=== PATIENT | female | born 1975 | race Hispanic/Latino ===

== ENCOUNTER 2020-11-20 23:24 | Emergency (ER) | payer BC ==
[2020-11-21] MEDS ORDERED: diphenhydrAMINE 50 MG/ML VIAL IV ONE (07:35)
[2020-11-21] MEDS ORDERED: METOCLOPRAMIDE 10 MG/2 ML INJ IV ONE (07:35)
[2020-11-21] MEDS ORDERED: ACETAMINOPHEN 500 MG TAB PO ONE (07:35)
[2020-11-21] MEDS ORDERED: LACTATED RINGERS 1,000 ML IV ONE (07:35)
--- NOTE | 2020-11-21 07:37 | Emergency Department Report ---
ED General Adult HPI - General Chief complaint: Seizure Stated complaint: SEIZURES PUI?: No Time Seen by Provider: 11/21/20 06:08 Source: patient, RN notes reviewed Mode of arrival: Ambulatory Limitations: No Limitations - History of Present Illness Initial comments: This patient is a pleasant and cooperative 45-year-old female. She is not known to myself, and is currently visiting from [place]. She reports a history of petit seizures. She has not had a convulsive event or petit seizure for about 3 years. Patient reports being at work yesterday, feeling like she was in her usual state of health, except for feeling "really stressed out", when she feels like she may have had a seizure event. Her events are nonconvulsive, and she reports that she "blanks out", and has some amnesia. Prior to the event, the patient denies all physical complaints. After the event, the patient complains of throbbing headache which is typical for her episodes. She denies sudden and thunderclap headache. She denies vomiting, diaphoresis, chest pain, abdominal pain, shortness of breath, urinary symptoms, and recreational drug use. She previously was on Depakote, but has not taken any medication for the past 3 years. In [place], she has been followed by a primary care doctor but not a neurologist for the past 3 years. Besides her mild headache, she feels like she is back to her baseline. She denies Covid symptomatology. At the moment, denies loss of vision, chest pain, abdominal pain, shortness of breath, urinary symptoms, extremity weakness/numbness -: Last night Location: head Severity scale (0 -10): 0 Quality: aching Consistency: intermittent Improves with: none Worsens with: none Associated Symptoms: denies other symptoms - Related Data Previous Rx's Medication Instructions Recorded Last Taken Type Aspirin 325 mg PO ONCE #30 tablet 11/21/20 Unknown Rx levETIRAcetam [Keppra TAB] 500 mg PO BID #60 tablet 11/21/20 Unknown Rx Allergies Allergy/AdvReac Type Severity Reaction Status Date / Time morphine Allergy Anaphylaxis Verified 11/21/20 00:21 ED Review of Systems ROS: Stated complaint: SEIZURES Other details as noted in HPI Comment: All other systems reviewed and negative Neurological: headache ED Past Medical Hx - Past Medical History Previous Medical History?: Yes Additional medical history: Seizures - Surgical History Past Surgical History?: Yes Hx Cholecystectomy: Yes Hx Appendectomy: Yes Additional Surgical History: Hysterectomy - Medications Home Medications: Home Medications Medication Instructions Recorded Confirmed Last Taken Type Aspirin 325 mg PO ONCE #30 tablet 11/21/20 Unknown Rx levETIRAcetam [Keppra TAB] 500 mg PO BID #60 tablet 11/21/20 Unknown Rx ED Physical Exam - General Limitations: No Limitations General appearance: alert, in no apparent distress - Head Head exam: Present: atraumatic, normocephalic - Eye Eye exam: Present: normal appearance, PERRL, EOMI. Absent: nystagmus - ENT ENT exam: Present: normal exam, normal orophraynx, mucous membranes moist, normal external ear exam - Neck Neck exam: Present: normal inspection, full ROM. Absent: tenderness, meningismus - Respiratory Respiratory exam: Present: normal lung sounds bilaterally. Absent: respiratory distress, wheezes, rales, rhonchi, stridor, decreased breath sounds - Cardiovascular Cardiovascular Exam: Present: regular rate, normal rhythm, normal heart sounds. Absent: bradycardia, tachycardia, irregular rhythm, systolic murmur, diastolic murmur, rubs, gallop - GI/Abdominal GI/Abdominal exam: Present: soft. Absent: distended, tenderness, guarding, rebound, rigid, pulsatile mass - Extremities Exam Extremities exam: Present: normal inspection, full ROM, other (2+ pulses noted in the bilateral upper and lower extremities. There is no palpable cord. negative Homans sign. Muscular compartments are soft. The pelvis is stable.). Absent: pedal edema, calf tenderness - Back Exam Back exam: Present: normal inspection, full ROM. Absent: tenderness, CVA tenderness (R), CVA tenderness (L), paraspinal tenderness, vertebral tenderness - Neurological Exam Neurological exam: Present: alert (There is no past-pointing. There is no pronator drift. [id number] within normal limits.), oriented X3, normal gait, other (No facial droop. Tongue midline. Extraocular movements intact bilaterally. Facial sensation intact to light touch in V1, V2, V3 distribution bilaterally. 5 and a 5 strength in 4 extremities. Sensation intact to light touch in 4 extremities.). Absent: motor sensory deficit - Psychiatric Psychiatric exam: Present: normal affect, normal mood - Skin Skin exam: Present: warm, dry, intact, normal color. Absent: rash ED Course Vital Signs 11/21/20 11/21/20 11/21/20 00:18 06:05 06:06 Temperature 98.1 F 98.2 F Pulse Rate 60 66 Respiratory 16 16 Rate Blood Pressure 144/81 Blood Pressure 150/83 [Right] O2 Sat by Pulse 100 99 100 Oximetry 11/21/20 11/21/20 11/21/20 06:15 06:30 06:46 Temperature Pulse Rate Respiratory Rate Blood Pressure 150/83 150/83 150/83 Blood Pressure [Right] O2 Sat by Pulse 99 99 97 Oximetry 11/21/20 11/21/20 11/21/20 07:00 07:16 07:32 Temperature Pulse Rate Respiratory Rate Blood Pressure 141/87 141/87 141/73 Blood Pressure [Right] O2 Sat by Pulse 98 99 Oximetry 11/21/20 11/21/20 11/21/20 08:56 09:55 10:56 Temperature Pulse Rate Respiratory Rate Blood Pressure 125/69 108/67 122/62 Blood Pressure [Right] O2 Sat by Pulse Oximetry 11/21/20 11:55 Temperature Pulse Rate 53 L Respiratory 16 Rate Blood Pressure Blood Pressure 122/62 [Right] O2 Sat by Pulse 98 Oximetry - Reevaluation(s) Reevaluation #1: 11/21/20 08:10 Differential diagnosis, including but not limited to: Seizure, pseudoseizure, conversion disorder, electrolyte derangement, thyroid derangement, complex migraine, tension headache, cluster headache Assessment and plan: 45-year-old female, with a history of nonconvulsive seizure, last event was 3 years ago, presenting today with a complaint of possible absence or petit event. She is currently clinically sober, cooperative, with a GCS of 15, NIH score of 0, ambulates with a steady gait, has no meningeal signs, and is not in any acute distress. She does endorse a typical headache for her event, and the headache is not sudden, thunderclap, maximal intensity, and it is not described as the worst headache of her life. We will check appropriate laboratory studies, noncontrast CT scan of the brain, EKG, 11/21/20 09:54 Patient reassessed. Laboratory studies nondiagnostic and unremarkable at this time, urine toxicology screen reviewed and appreciated, this patient is clinically sober. CT scan of the brain is negative for acute findings. Incidental findings noted. Patient is observed in this department for approximately 10 hours without recurrent event. We will start her on baby aspirin, Keppra, instructed to not drive or operate motor vehicles, and have her follow-up with an outpatient primary care doctor and/or neurologist. Patient has articulated understanding to these instructions. Return precautions are reviewed. All questions answered. Patient states her headache feels improved. 11/21/20 10:23 On final reassessment, patient is sleeping comfortably, in stretcher, and in no acute distress ED Medical Decision Making - Lab Data Result diagrams: 11/21/20 08:18 11/21/20 08:18 Vital Signs 11/21/20 11/21/20 00:18 06:06 Temperature 98.1 F 98.2 F Pulse Rate 60 66 Respiratory 16 16 Rate Blood Pressure 144/81 Blood Pressure 150/83 [Right] O2 Sat by Pulse 100 100 Oximetry Lab Results 11/21/20 11/21/20 Range/Units Unknown Unknown Urine Bilirubin Neg (Negative) Urine RBC (Auto) 5.0 (0.0-6.0) /HPF U Epithel Cells (Auto) 2.0 (0-13.0) /HPF Urine Opiates Screen Negative Urine Methadone Screen Negative Ur Phencyclidine Scrn Negative U Benzodiazepines Scrn Negative Urine Cocaine Screen Negative Lab Results 11/21/20 11/21/20 11/21/20 Range/Units 08:18 08:18 08:18 WBC 6.8 (4.5-11.0) K/mm3 RBC 4.60 (3.65-5.03) M/mm3 Hgb 14.9 H (10.1-14.3) gm/dl Hct 43.4 H (30.3-42.9) % MCV 94 (79-97) fl MCH 32 (28-32) pg MCHC 34 (30-34) % RDW 12.9 L (13.2-15.2) % Plt Count 215 (140-440) K/mm3 Sodium 143 (137-145) mmol/L Potassium 4.0 (3.6-5.0) mmol/L Chloride 103.7 (98-107) mmol/L Carbon Dioxide 30 (22-30) mmol/L Anion Gap 13 mmol/L BUN 14 (7-17) mg/dL Creatinine 0.7 (0.6-1.2) mg/dL Estimated GFR > 60 ml/min BUN/Creatinine Ratio 20 % Glucose 74 (65-100) mg/dL Calcium 10.0 (8.4-10.2) mg/dL Magnesium 1.90 (1.7-2.3) mg/dL Total Creatine Kinase 76 (30-135) units/L TSH 1.030 (0.270-4.200) mlU/mL Urine Color (Yellow) Urine Turbidity (Clear) Urine pH (5.0-7.0) Ur Specific [place] (1.003-1.030) Urine Protein (Negative) mg/dL Urine Glucose (UA) (Negative) mg/dL Urine Ketones (Negative) mg/dL Urine Blood (Negative) Urine Nitrite (Negative) Urine Bilirubin (Negative) Urine Urobilinogen (<2.0) mg/dL Ur Leukocyte Esterase (Negative) Urine WBC (Auto) (0.0-6.0) /HPF Urine RBC (Auto) (0.0-6.0) /HPF U Epithel Cells (Auto) (0-13.0) /HPF Hyaline Casts /LPF Urine Mucus /HPF Urine Opiates Screen Urine Methadone Screen Ur Barbiturates Screen Ur Phencyclidine Scrn Ur Amphetamines Screen U Benzodiazepines Scrn Urine Cocaine Screen U Marijuana (THC) Screen Drugs of Abuse Note Plasma/Serum Alcohol (0-0.07) % 11/21/20 11/21/20 11/21/20 Range/Units 08:18 Unknown Unknown WBC (4.5-11.0) K/mm3 RBC (3.65-5.03) M/mm3 Hgb (10.1-14.3) gm/dl Hct (30.3-42.9) % MCV (79-97) fl MCH (28-32) pg MCHC (30-34) % RDW (13.2-15.2) % Plt Count (140-440) K/mm3 Sodium (137-145) mmol/L Potassium (3.6-5.0) mmol/L Chloride (98-107) mmol/L Carbon Dioxide (22-30) mmol/L Anion Gap mmol/L BUN (7-17) mg/dL Creatinine (0.6-1.2) mg/dL Estimated GFR ml/min BUN/Creatinine Ratio % Glucose (65-100) mg/dL Calcium (8.4-10.2) mg/dL Magnesium (1.7-2.3) mg/dL Total Creatine Kinase (30-135) units/L TSH (0.270-4.200) mlU/mL Urine Color Elisha (Yellow) Urine Turbidity Slightly-cloudy (Clear) Urine pH 5.0 (5.0-7.0) Ur Specific [place] 1.027 (1.003-1.030) Urine Protein 30 mg/dl (Negative) mg/dL Urine Glucose (UA) Neg (Negative) mg/dL Urine Ketones Neg (Negative) mg/dL Urine Blood Neg (Negative) Urine Nitrite Neg (Negative) Urine Bilirubin Neg (Negative) Urine Urobilinogen 2.0 (<2.0) mg/dL Ur Leukocyte Esterase Sm (Negative) Urine WBC (Auto) 4.0 (0.0-6.0) /HPF Urine RBC (Auto) 5.0 (0.0-6.0) /HPF U Epithel Cells (Auto) 2.0 (0-13.0) /HPF Hyaline Casts 4 /LPF Urine Mucus 2+ /HPF Urine Opiates Screen Negative Urine Methadone Screen Negative Ur Barbiturates Screen Presumptive positive Ur Phencyclidine Scrn Negative Ur Amphetamines Screen Presumptive positive U Benzodiazepines Scrn Negative Urine Cocaine Screen Negative U Marijuana (THC) Screen Presumptive positive Drugs of Abuse Note Disclamer Plasma/Serum Alcohol < 0.01 (0-0.07) % Lab Results 11/21/20 11/21/20 11/21/20 Range/Units 08:18 08:18 08:18 WBC 6.8 (4.5-11.0) K/mm3 RBC 4.60 (3.65-5.03) M/mm3 Hgb 14.9 H (10.1-14.3) gm/dl Hct 43.4 H (30.3-42.9) % MCV 94 (79-97) fl MCH 32 (28-32) pg MCHC 34 (30-34) % RDW 12.9 L (13.2-15.2) % Plt Count 215 (140-440) K/mm3 Sodium 143 (137-145) mmol/L Potassium 4.0 (3.6-5.0) mmol/L Chloride 103.7 (98-107) mmol/L Carbon Dioxide 30 (22-30) mmol/L Anion Gap 13 mmol/L BUN 14 (7-17) mg/dL Creatinine 0.7 (0.6-1.2) mg/dL Estimated GFR > 60 ml/min BUN/Creatinine Ratio 20 % Glucose 74 (65-100) mg/dL Calcium 10.0 (8.4-10.2) mg/dL Magnesium 1.90 (1.7-2.3) mg/dL Total Creatine Kinase 76 (30-135) units/L TSH 1.030 (0.270-4.200) mlU/mL Urine Color (Yellow) Urine Turbidity (Clear) Urine pH (5.0-7.0) Ur Specific [place] (1.003-1.030) Urine Protein (Negative) mg/dL Urine Glucose (UA) (Negative) mg/dL Urine Ketones (Negative) mg/dL Urine Blood (Negative) Urine Nitrite (Negative) Urine Bilirubin (Negative) Urine Urobilinogen (<2.0) mg/dL Ur Leukocyte Esterase (Negative) Urine WBC (Auto) (0.0-6.0) /HPF Urine RBC (Auto) (0.0-6.0) /HPF U Epithel Cells (Auto) (0-13.0) /HPF Hyaline Casts /LPF Urine Mucus /HPF Urine Opiates Screen Urine Methadone Screen Ur Barbiturates Screen Ur Phencyclidine Scrn Ur Amphetamines Screen U Benzodiazepines Scrn Urine Cocaine Screen U Marijuana (THC) Screen Drugs of Abuse Note Plasma/Serum Alcohol (0-0.07) % 11/21/20 11/21/20 11/21/20 Range/Units 08:18 Unknown Unknown WBC (4.5-11.0) K/mm3 RBC (3.65-5.03) M/mm3 Hgb (10.1-14.3) gm/dl Hct (30.3-42.9) % MCV (79-97) fl MCH (28-32) pg MCHC (30-34) % RDW (13.2-15.2) % Plt Count (140-440) K/mm3 Sodium (137-145) mmol/L Potassium (3.6-5.0) mmol/L Chloride (98-107) mmol/L Carbon Dioxide (22-30) mmol/L Anion Gap mmol/L BUN (7-17) mg/dL Creatinine (0.6-1.2) mg/dL Estimated GFR ml/min BUN/Creatinine Ratio % Glucose (65-100) mg/dL Calcium (8.4-10.2) mg/dL Magnesium (1.7-2.3) mg/dL Total Creatine Kinase (30-135) units/L TSH (0.270-4.200) mlU/mL Urine Color Elisha (Yellow) Urine Turbidity Slightly-cloudy (Clear) Urine pH 5.0 (5.0-7.0) Ur Specific [place] 1.027 (1.003-1.030) Urine Protein 30 mg/dl (Negative) mg/dL Urine Glucose (UA) Neg (Negative) mg/dL Urine Ketones Neg (Negative) mg/dL Urine Blood Neg (Negative) Urine Nitrite Neg (Negative) Urine Bilirubin Neg (Negative) Urine Urobilinogen 2.0 (<2.0) mg/dL Ur Leukocyte Esterase Sm (Negative) Urine WBC (Auto) 4.0 (0.0-6.0) /HPF Urine RBC (Auto) 5.0 (0.0-6.0) /HPF U Epithel Cells (Auto) 2.0 (0-13.0) /HPF Hyaline Casts 4 /LPF Urine Mucus 2+ /HPF Urine Opiates Screen Negative Urine Methadone Screen Negative Ur Barbiturates Screen Presumptive positive Ur Phencyclidine Scrn Negative Ur Amphetamines Screen Presumptive positive U Benzodiazepines Scrn Negative Urine Cocaine Screen Negative U Marijuana (THC) Screen Presumptive positive Drugs of Abuse Note Disclamer Plasma/Serum Alcohol < 0.01 (0-0.07) % - EKG Data -: EKG Interpreted by Pa EKG shows normal: sinus rhythm Rate: normal - EKG Data 11/21/20 08:09 EKG interpreted at 07: 28 Sinus rhythm, bradycardia, rate 52 bpm. Normal axis, normal intervals, incomplete right bundle branch block, high left ventricular voltage, and minimal motion artifact. Normal P wave axis. This is an abnormal EKG. This is not a STEMI. There is no prior for comparison. - Radiology Data Radiology results: pending, report reviewed, image reviewed [facility] [address] [place] [address] Cat Scan Report Signed Patient: KAN GARCIA MR#: [id number] : 1975 Acct:[id number] Age/Sex: 45 / F ADM Date: 11/20/20 Loc: ED Attending Dr: Yakelin quinones Physician: BIA EMANUEL MD Date of Service: 11/21/20 Procedure(s): CT head/brain wo con Accession Number(s): [id number] cc: BIA EMANUEL MD CT HEAD WITHOUT CONTRAST INDICATION: headache, convulsion TECHNIQUE: All CT scans at this location are performed using CT dose reduction for ALARA by means of automated exposure control. COMPARISON: None available. FINDINGS: BRAIN: No hemorrhage or mass effect are seen. No evidence of acute cortical infarction is noted. Small indeterminate hypodensities are seen in the left putamen of unknown age which may be small lacunar infarctions. ORBITS: Normal as visualized. SOFT TISSUES OF HEAD: Normal. CALVARIUM: Normal. VISUALIZED PARANASAL SINUSES AND MASTOID AIR CELLS: Clear. ADDITIONAL FINDINGS: None. IMPRESSION: No definite acute abnormality seen. Age-indeterminate small hypodensities are noted in the left basal ganglia as above Signer Name: Gage Maldonado MD Signed: 11/21/2020 8:25 AM Workstation Name: [id number] Transcribed By: GJ Dictated By: Gage Maldonado MD Electronically Authenticated By: Gage Maldonado MD Signed David e/Time: 11/21/20824 DD/ 2 Critical care attestation.: If time is entered above; I have spent that time in minutes in the direct care of this critically ill patient, excluding procedure time. ED Disposition Clinical Impression: Headache, History of seizure Disposition: DC-01 TO HOME OR SELFCARE Is pt being admited?: No Does the pt Need Aspirin: No Condition: Good Additional Instructions: We recommend that the patient not drive or operate motor vehicles for the next 6 months. Take the aspirin, and Keppra medication as directed. Recommend follow-up with a primary care doctor or neurologist within the next 5 to 7 days. Please have a primary care doctor or neurologist contact the medical records department, to follow-up on nonemergent incidental laboratory and radiographic findings. Please note that urine toxicology screen today demonstrated the presence of marijuana, amphetamines, and barbiturates. Recommend that the patient avoid consumption and exposure to the aforementioned, as well as tobacco, smoke products and alcohol. Dr. Thomas, Dr. Banerjee are local neurology specialist. [facility] is a local medical clinic. Dr. Que Hancock is a local primary care doctor. Please return to the emergency room right away with new pain, worsened pain, migration of pain, projectile vomiting, change in mental status, confusion, inability to tolerate liquid feeds, new, worsened or different symptoms not present on the initial emergency room evaluation. Prescriptions: Aspirin 325 mg PO ONCE #30 tablet levETIRAcetam [Keppra TAB] 500 mg PO BID #60 tablet Referrals: TERRY BANERJEE MD [Referring] - 3-5 Days MARIANGEL THOMAS MD [Staff Physician] - 3-5 Days DEBRA HANCOCK MD [Staff Physician] - 3-5 Days [facility] [Provider Group] - 3-5 Days Forms: Work/School Release Form(ED)
[2020-11-21 07:56] LABS: Benzodiazepines Screen,Urine Negative; Cocaine Screen,Urine Negative; Methadone Screen,Urine Negative; Opiate Screen,Urine Negative
[2020-11-21 08:09] LABS: Bilirubin,Urine NEG (Negative); Blood,Urine NEG (Negative); Color,Urine Amber (Yellow); Hyaline Casts,Urine 4 /LPF; Mucus,Urine 2+ /HPF
[2020-11-21 08:24] LABS: Amphetamine Screen,Urine PRESUMPTIVE POSITIVE; Cannabinoid Screen,Urine PRESUMPTIVE POSITIVE
--- NOTE | 2020-11-21 08:29 | Cat Scan Report ---
CT HEAD WITHOUT CONTRAST INDICATION: headache, convulsion TECHNIQUE: All CT scans at this location are performed using CT dose reduction for ALARA by means of automated exposure control. COMPARISON: None available. FINDINGS: BRAIN: No hemorrhage or mass effect are seen. No evidence of acute cortical infarction is noted. Smal l indeterminate hypodensities are seen in the left putamen of unknown age which may be small lacunar infarctions. ORBITS: Normal as visualized. SOFT TISSUES OF HEAD: Normal. CALVARIUM: Normal. VISUALIZED PARANASAL SINUSES AND MASTOID AIR CELLS: Clear. ADDITIONAL FINDINGS: None. IMPRESSION: No definite acute abnormality seen. Age-indeterminate small hypodensities are noted in th e left basal ganglia as above Signer Name: Gage Maldonado MD Signed: 11/21/2020 8:25 AM Workstation Name: [id number]
[2020-11-21 09:07] LABS: Hematocrit 43.4 % (30.3-42.9); Hemoglobin 14.9 gm/dl (10.1-14.3); Mean Corpuscular HGB Conc 34 % (30-34); Mean Corpuscular Volume 94 fl (79-97); Platelet Count 215 K/mm3 (140-440); Red Cell Distribution Width 12.9 % (13.2-15.2)
[2020-11-21 09:27] LABS: Blood Urea Nitrogen 14 mg/dL (7-17); Hemolysis Index 42
[2020-11-21 09:30] LABS: BUN/Creatinine Ratio 20
[2020-11-21] MEDS ORDERED: levETIRAcetam 500 MG TAB PO ONE (09:55)
--- NOTE | 2020-11-21 10:57 | Electrocardiograph Report ---
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
[2020-11-21 11:14] VITALS: BP 122/62
== END 2020-11-21 12:16 | disposition home or self-care (01) ==
LOC: ED 23:24
DX: G40.909 Epilepsy, unspecified, not intractable, without status epilepticus (principal); R51.9 Headache, unspecified; Z79.899 Other long term (current) drug therapy; Z88.6 Allergy status to analgesic agent; Z98.890 Other specified postprocedural states; Z90.49 Acquired absence of other specified parts of digestive tract; Z90.710 Acquired absence of both cervix and uterus
CPT/HCPCS: 36415; 70450; 80048; 80307; 81001; 82550; 83735; 84443; 85027; 93005; 96361; 96374; 96375; 99284; J1200; J2765; J7120; 80320; G0480